=== PATIENT | male | born 1970 | race Caucasian/White ===

== ENCOUNTER 2016-09-24 21:49 | Emergency (ER) | payer OTHER ==
[~2016-09-24] VITALS: Ht 177.8 cm; Wt 97.5 kg
[~2016-09-24 21:49] MED LIST: ACHD5005 PO; CEPH-38 PO; CLIN-81 PO; COLC0.6C3 PO; HYDR-3720 PO; LISI1TAB PO; PRD20T PO
--- OUTSIDE RECORDS SUMMARY | 2016-09-24 21:54 | XMS REPORT | Continuity of Care Document ---
Author Author [facility] Organization [facility] Address Unknown Phone Unavailable Care Team Providers Care Customer Care Specialist Name Role Phone REJI MARSH MD PCP Insurance Providers Payer Name Policy Number Subscriber Name Relationship Enter Insurance Name [id number] Edvin Farley 19 Self / Same As Patient Advance Directives Directive Response Recorded Date/Time Advance Directives No 06/13/16 5:41pm Health Care Power of Deputy Harbormaster No 06/13/16 5:41pm Organ Donor Yes 06/13/16 5:41pm Resuscitation Status Full Code 06/13/16 5:41pm Chief Complaint and Reason for Visit Chief Complaint Cardiac/General Problems Reason for Visit Chest discomfort Hypertension Problems Active Problems Medical Problem Onset Date Status Chest discomfort Unknown Acute Chest pain Unknown Acute Gout of elbow Unknown Acute Gout of elbow Unknown Acute Gout of elbow Unknown Acute Hypertension Unknown Acute Swelling of left upper extremity Unknown Acute Swelling of left upper extremity Unknown Acute Medications Current Home Medications Medication Dose Units Route Directions Days/Qty Instructions Start Date Hctz/Lisinopril (Zestoretic) 1 Each 1 Each Oral Daily 10/27/13 Colchicine 0.6 Mg 1.2 Mg Oral Once 3 1.2 mg po x1 dose, then 0.6 mg po 1 hr after initial dose. 09/03/14 Hydrocodone Bit/Acetaminophen 1 Tab 1 Tab Oral Every 4HRS as needed for Pain 10 09/06/14 Past Home Medications Medication Directions Ordered Status Cephalexin Monohydrate 500 Mg Capsule, 2 Each Oral Three Times A Day Discontinued Acetaminophen/Hydrocodone Bitart 1 Ea Tab, 1 Ea Oral Q6hr Prn 12/04/08 Discontinued Acetaminophen/Hydrocodone Bitart 1 Each Tablet, 1-2 Each Oral Every 6 Hours as needed for Pain 10/27/13 Discontinued Prednisone 20 Mg Tab, 40 Mg Oral Daily 10/27/13 Discontinued Clindamycin Hcl 300 Mg Capsule, 300 Mg Oral Four Times Daily 09/06/14 Discontinued Social History Social History Problem Response Recorded Date/Time Alcohol Use Occasionally Uses 09/06/2014 8:35pm Recreational Drug Use No 09/06/2014 8:35pm Recent Foreign Travel No 06/13/2016 5:41pm Recent Infectious Disease Exposure No 06/13/2016 5:41pm Smoking Status Never a Smoker 06/13/2016 5:41pm Recent Hopitalizations No 06/13/2016 5:41pm Query Response Start Date Stop Date Smoking Status Never a Smoker Hospital Discharge Instructions No hospital discharge instructions. Plan of Care Discharge Date 06/13/16 7:51pm Disposition 01 HOME, SELF-CARE Condition at Discharge Improved Instructions/Education Provided High Blood Pressure (DC) Chest Pain (DC) Prescriptions See Medication Section Referrals REJI MARSH MD - Primary Care Physician Additional Instructions/Education All discharge instructions reviewed with patient and/or family. Voiced understanding. Take medications as directed. Avoid high caffeine use and limit coffee to 3 cups daily or less. Consider mixing with the catheter. Follow up with your Dr. in 2-3 days for recheck and further evaluation. Return for worse pain, fever, vomiting, weakness, breathing problems or other concerns as needed. Functional Status No functional status results. Allergies, Adverse Reactions, Alerts Allergen Type Severity Reaction Status Last Updated Aspirin Allergy Mild Active 06/13/16 Ibuprofen Allergy Mild Active 12/04/08 Immunizations No immunization records. Vital Signs Acute Vital Signs Vital Response Date/Time Temperature (Fahrenheit) 98. degrees F (97.6 - 99.5) 06/13/2016 5:41pm Temperature (Calculated Celsius) 36.6696 degrees C (36.4 - 37.5) 06/13/2016 5 :41pm Temperature Source Temporal 06/13/2016 5:41pm Pulse Rate (adult) 82 bpm (60 - 90) 06/13/2016 5:41pm Respiratory Rate 18 bpm (12 - 24) 06/13/2016 5:41pm O2 Sat by Pulse Oximetry 97 % (88 - 100) 06/13/2016 5:41pm Blood Pressure 160/67 mm Hg 06/13/2016 5:41pm Blood Pressure Mean 98 mm Hg 06/13/2016 5:41pm Height (Feet) 5 feet 06/13/2016 5:41pm Height (Inches) 10 inches 06/13/2016 5:41pm Height (Calculated Centimeters) 177.653868 cm 06/13/2016 5:41pm Weight (Pounds) 220 pounds 06/13/2016 5:41pm Weight (Calculated Kilograms) 99.953682 kilograms 06/13/2016 5:41pm Capillary Refill Capillary Refill Less Than 3 Seconds 06/13/2016 5:41pm Height 5 ft 10 in Weight 220 lb Body Mass Index 31.6 kg/m^2 Results Laboratory Results Test Name Result Units Flags Reference Collection Date/Time Result Date/ Time Comments White Blood Count 8.7 10^3/uL 4.3-11.0 06/13/2016 6:45pm 06/13/2016 7: 04pm Red Blood Count 5.17 10^6/uL 4.35-5.85 06/13/2016 6:45pm 06/13/2016 7: 04pm Hemoglobin 15.7 G/DL 13.3-17.7 06/13/2016 6:45pm 06/13/2016 7:04pm Hematocrit 45 % 40-54 06/13/2016 6:45pm 06/13/2016 7:04pm Mean Corpuscular Volume 87 FL 80-99 06/13/2016 6:45pm 06/13/2016 7: 04pm Mean Corpuscular Hemoglobin 30 PG 25-34 06/13/2016 6:45pm 06/13/2016 7: 04pm Mean Corpuscular Hemoglobin Concent 35 G/DL 32-36 06/13/2016 6:45pm 09/2015 7:04pm Red Cell Distribution Width 12.8 % 10.0-14.5 06/13/2016 6:45pm 2015 7:04pm Platelet Count 230 10^3/uL 130-400 06/13/2016 6:45pm 06/13/2016 7:04pm Mean Platelet Volume 10.2 FL 7.4-10.4 06/13/2016 6:45pm 06/13/2016 7: 04pm Neutrophils (%) (Auto) 64 % 42-75 06/13/2016 6:45pm 06/13/2016 7:04pm Lymphocytes (%) (Auto) 25 % 12-44 06/13/2016 6:45pm 06/13/2016 7:04pm Monocytes (%) (Auto) 9 % 0-12 06/13/2016 6:45pm 06/13/2016 7:04pm Eosinophils (%) (Auto) 2 % 0-10 06/13/2016 6:45pm 06/13/2016 7:04pm Basophils (%) (Auto) 0 % 0-10 06/13/2016 6:45pm 06/13/2016 7:04pm Neutrophils # (Auto) 5.5 X 10^3 1.8-7.8 06/13/2016 6:45pm 06/13/2016 7: 04pm Lymphocytes # (Auto) 2.2 X 10^3 1.0-4.0 06/13/2016 6:45pm 06/13/2016 7: 04pm Monocytes # (Auto) 0.8 X 10^3 0.0-1.0 06/13/2016 6:45pm 06/13/2016 7: 04pm Eosinophils # (Auto) 0.2 10^3/uL 0.0-0.3 06/13/2016 6:45pm 06/13/2016 7 :04pm Basophils # (Auto) 0.0 10^3/uL 0.0-0.1 06/13/2016 6:45pm 06/13/2016 7: 04pm D-Dimer 0.39 UG/ML 0.00-0.49 06/13/2016 6:45pm 06/13/2016 7:18pm Sodium Level 141 MMOL/L 135-145 06/13/2016 6:45pm 06/13/2016 7:28pm Potassium Level 4.0 MMOL/L 3.6-5.0 06/13/2016 6:45pm 06/13/2016 7:28pm Chloride Level 109 MMOL/L H 98-107 06/13/2016 6:45pm 06/13/2016 7:28pm Carbon Dioxide Level 23 MMOL/L 21-32 06/13/2016 6:45pm 06/13/2016 7: 28pm Anion Gap 9 MMOL/L 5-14 06/13/2016 6:45pm 06/13/2016 7:28pm Blood Urea Nitrogen 9 MG/DL 7-18 06/13/2016 6:45pm 06/13/2016 7:28pm Creatinine 0.84 MG/DL 0.60-1.30 06/13/2016 6:45pm 06/13/2016 7:28pm BUN/Creatinine Ratio 11 06/13/2016 6:45pm 06/13/2016 7:28pm Estimat Glomerular Filtration Rate > 60 06/13/2016 6:45pm 2015 7:28pm GFR INTERPRETIVE DATA UNITS FOR ESTIMATED GFR (eGFR): mL/min/1.73 M2 REFERENCE RANGE FOR ESTIMATED GFR (eGFR) eGFR NORMAL eGFR >60 MODERATELY DECREASED eGFR 30-59 SEVERLY DECREASED eGFR 15-29 KIDNEY FAILURE <15 (OR DIALYSIS) Glucose Level 104 MG/DL 70-105 06/13/2016 6:45pm 06/13/2016 7:28pm Calcium Level 9.5 MG/DL 8.5-10.1 06/13/2016 6:45pm 06/13/2016 7:28pm Total Bilirubin 0.9 MG/DL 0.1-1.0 06/13/2016 6:45pm 06/13/2016 7:28pm Alkaline Phosphatase 110 U/L 40-136 06/13/2016 6:45pm 06/13/2016 7: 28pm Aspartate Amino Transf (AST/SGOT) 32 U/L 5-34 06/13/2016 6:45pm 2015 7:28pm Alanine Aminotransferase (ALT/SGPT) 54 U/L 0-55 06/13/2016 6:45pm 06/13 7:28pm Troponin I < 0.30 NG/ML <0.30 06/13/2016 6:45pm 06/13/2016 7:33pm Total Protein 7.2 G/DL 6.4-8.2 06/13/2016 6:45pm 06/13/2016 7:28pm Albumin 4.7 G/DL H 3.2-4.5 06/13/2016 6:45pm 06/13/2016 7:28pm Procedures Procedure Status Date Provider(s) Tracing only of electrocardiogram Active 06/13/16 DAVID ROJAS APRN Encounters Encounter Location Arrival/Admit Date Discharge/Depart Date Attending Provider Departed Emergency Room [facility] 06/13/16 5:22pm 06/13 7:51pm ABA PATINO MD Recent Diagnosis
[2016-09-24] MEDS ORDERED: LISINOPRIL (22:23)
[2016-09-24] MEDS ORDERED: PRILOSEC (22:23)
--- NOTE | 2016-09-24 23:19 | ED Lower Extremity ---
General Chief Complaint: Lower Extremity Stated Complaint: ANKLE SWELLING Nursing Triage Note: PT REPORTS SWELLING IN RIGHT ANKLE STARTING YESTERDAY. NO KNOWN INJURY. HE REPORTS REDNESS ET DISCOMFORT WHEN WALKING, AFTER SITTING STILL. Nursing Sepsis Screen: No Definite Risk History of Present Illness Time seen by provider: 22:50 Initial Comments Evaluation of right ankle pain Onset: yesterday Severity: mild Pain/Injury Location: right ankle Method of Injury: twisted Modifying Factors: Improves With Rest Allergies and Home Medications Allergies Coded Allergies: aspirin (Unverified Allergy, Mild, 06/13/16) ibuprofen (Unverified Allergy, Mild, 12/04/08) Home Medications (Reported) (Reported) Constitutional: no symptoms reported see HPI EENTM: no symptoms reported see HPI Respiratory: no symptoms reported see HPI Cardiovascular: no symptoms reported see HPI Gastrointestinal: no symptoms reported see HPI Genitourinary: no symptoms reported see HPI Musculoskeletal: no symptoms reported see HPI Skin: no symptoms reported see HPI Psychiatric/Neurological: No Symptoms Reported See HPI All Other Systems Reviewed Negative Unless Noted: Yes Past [id number]-[id number] Hx Patient Social History Alcohol Use: Occasionally Uses Recreational Drug Use: No Smoking Status: Never a Smoker 2nd Hand Smoke Exposure: No Recent Foreign Travel: No Contact w/Someone Who Travel: No Recent Infectious Disease Expo: No Recent Hopitalizations: No Immunizations Up To Date Tetanus Booster (TDap): Unknown PED Vaccines UTD: No Date of Influenza Vaccine: Apr 20, 2016 Seasonal Allergies Seasonal Allergies: Yes Surgeries HX Surgeries: Yes Surgeries: Orthopedic, Tonsillectomy Respiratory Hx Respiratory Disorders: No Cardiovascular Hx Cardiac Disorders: Yes Cardiac Disorders: Hypertension Neurological Hx Neurological Disorders: No Reproductive System Hx Reproductive Disorders: No Genitourinary Hx Genitourinary Disorders: No Gastrointestinal Hx Gastrointestinal Disorders: Yes Gastrointestinal Disorders: Gastroesophageal Reflux Musculoskeletal Hx Musculoskeletal Disorders: Yes Musculoskeletal Disorders: Gout Endocrine Hx Endocrine Disorders: No HEENT HX ENT Disorders: No Cancer Hx Cancer: No Psychosocial Hx Psychiatric Problems: No Integumentary HX Skin/Integumentary Disorder: No Family Medical History Significant Family History: No Pertinent Family Hx Physical Exam Vital Signs Vital Sign - Last 12Hours 09/24/16 22:20 Temp 98.9 Pulse 91 Resp 16 B/P 134/92 Capillary Refill : Less Than 3 Seconds General Appearance: WD/WN no apparent distress Cardiovascular: normal peripheral pulses regular rate, rhythm no murmur Respiratory: chest non-tender lungs clear Ankles: right ankle limited range of motion (secondary to pain), right ankle pain (over ATFL), right ankle soft tissue tenderness (lateral aspect of the ankle), right ankle swelling (lateral malleolus), right ankle other (negative anterior drawer but reproduces pain) Neurologic/Psychiatric: no motor/sensory deficits alert normal mood/affect Skin: normal color warm/dry Lymphatic: no adenopathy Progress/Results/Core Measures Results/Orders My Orders Orders-CLAUS LOYOLA Ankle, Right, 3 Views (09/24/16 23:14) Vital Signs/I&O Vital Sign - Last 12Hours 09/24/16 22:20 Temp 98.9 Pulse 91 Resp 16 B/P 134/92 Blood Pressure Mean: 106 Diagnostic Imaging Diagonstic Imaging: Xray Plain Films/CT/US/NM/MRI: ankle Comments No acute fractures dislocations or bony abnormalities noted, soft tissue normal. Reviewed: Reviewed by Me Departure Impression Impression: Primary Impression: Ankle sprain Qualified Code: S93.411A - Sprain of calcaneofibular ligament of right ankle, initial encounter Disposition: HOME, SELF-CARE Condition: Stable Departure-Patient Inst. Referrals: REJI MARSH MD (PCP/Family) Primary Care Physician Patient Instructions: Ankle Sprain (DC) Add. Discharge Instructions: All discharge instructions reviewed with patient and/or family. Voiced understanding. Stevan wrap to right ankle when active. Ice to right ankle 20 minutes every 2-3 hours. May use Tylenol 650 mg every 6 hours and/or ibuprofen 600 mg every 8 hours for pain Progress activities as tolerated for right ankle Copy Copies To 1: REJI MARSH MD, AMY ARNP Sep 24, 2016 23:19
[2016-09-24 23:35] VITALS: BP 136/90
--- NOTE | 2016-09-25 07:12 | Diagnostic Imaging Report ---
3 views of the right ankle. INDICATION: Pain and soreness when walking. No known injury. FINDINGS: No fracture, dislocation, or radiopaque foreign body seen. Small calcaneal spur seen. IMPRESSION: No acute process. Dictated by: Dictated on workstation # [id number]
== END 2016-09-24 23:35 | disposition home or self-care (01) ==
LOC: EDUNIT# 21:49 → ER 21:50
DX: S93.401A Sprain of unspecified ligament of right ankle, initial encounter (principal); X50.0XXA Overexertion from strenuous movement or load, initial encounter; Y99.8 Other external cause status
CPT/HCPCS: 73610; 99283